=== PATIENT | male | born 1990 | race Caucasian/White ===

== ENCOUNTER 2018-06-17 14:02 | Outpatient (CLI) | payer MEDICAID, SELFPAY ==
[2018-06-17 15:42] LABS: ALT 59 U/L (12-78); AST 22 U/L (15-37); Albumin 3.8 g/dL (3.4-5.0); Alkaline Phosphatase 75 U/L (46-116); Bilirubin, Total 0.4 mg/dL (0.2-1.0); Ferritin 189 ng/mL (8-388); Total Protein 6.8 g/dL (6.4-8.2)
[2018-06-17 15:51] LABS: Bilirubin, Direct 0.07 mg/dL (0.00-0.20)
[2018-06-19 16:23] LABS: M. pneumoniae Ab, IgG Positive (Negative); M. pneumoniae Ab, IgM Negative (Negative)
[2018-06-20 10:36] LABS: Homocysteine 7.2 umol/L (4.5-12.4)
[2018-06-20 11:32] LABS: Lipoprotein (a) <6 mg/dL (<=30)
[2018-06-23 12:45] LABS: Specimen WB Whole Blood
[2018-06-25 11:35] LABS: C4a Level by RIA 921 ng/mL (0-2830)
== END 2018-06-17 14:22 ==
PROVIDERS: PCP Physician Assistant; Visit Provider Naturopath
DX: R74.8 Abnormal levels of other serum enzymes (principal); M25.50 Pain in unspecified joint; E78.5 Hyperlipidemia, unspecified; R77.8 Other specified abnormalities of plasma proteins
CPT/HCPCS: 36415; 80076; 83090; 83695; 81256; 82728; 86160; 86738